=== PATIENT | male | born 1955 | race Caucasian/White ===

== ENCOUNTER 2016-07-11 11:27 | Emergency (ER) | payer BC ==
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
[2016-07-11 14:07] VITALS: BP 118/62
== END 2016-07-11 14:04 | disposition home or self-care (01) ==
LOC: ER 11:27
PROC: 2W3SX1Z Immobilization of Right Foot using Splint (ICD-10-PCS; principal; 2016-07-11)
DX: S93.401A Sprain of unspecified ligament of right ankle, initial encounter (principal); S93.601A Unspecified sprain of right foot, initial encounter; X58.XXXA Exposure to other specified factors, initial encounter
CPT/HCPCS: 99283

== ENCOUNTER 2018-09-08 13:44 | Emergency (ER) | payer BC ==
[2018-09-08 13:56] VITALS: BP 134/65
--- NOTE | 2018-09-08 21:23 | ER Document Report ---
Entered by ISABELA CARABALLO SCRIBE 09/08/18 1433 Acting as scribe for:ARLEEN SU DO ED General - General Chief Complaint: Skin Problem Stated Complaint: LEG PAIN Time Seen by Provider: 09/08/18 14:06 Primary Care Provider: LUNA MOYA PA [Primary Care Provider] - Follow up as needed Notes: Patient is a 62-year-old male presenting to the emergency department complaining of a rash on his bilateral upper extremities and bilateral lower extremities. Patient states he has history of cellulitis and a staph infection and states his current symptoms are similar. He states he went to urgent care 4 days ago and was given Bactroban, 25 mg of hydroxyzine and doxycycline. He states his symptoms initially improved but have worsened yesterday. He states he has been also using OTC steroids and an triple antibiotic ointment with no relief. TRAVEL OUTSIDE OF THE [place] IN LAST 30 DAYS: No - Related Data Allergies/Adverse Reactions: No Known Allergies Allergy (Verified 09/08/18 13:45) Past Medical History - General Information source: Patient - Social History Smoking Status: Former Smoker Cigarette use (# per day): No Chew tobacco use (# tins/day): No Smoking Education Provided: No Frequency of alcohol use: None Family History: Reviewed & Not Pertinent Patient has suicidal ideation: No Patient has homicidal ideation: No Renal/ Medical History: Denies: Hx Peritoneal Dialysis Past Surgical History: Reports: Hx Oral Surgery, Hx Orthopedic Surgery - Immunizations Hx Diphtheria, Pertussis, Tetanus Vaccination: Yes Review of Systems - Review of Systems Constitutional: No symptoms reported EENT: No symptoms reported Cardiovascular: No symptoms reported Respiratory: No symptoms reported Gastrointestinal: No symptoms reported Genitourinary: No symptoms reported Male Genitourinary: No symptoms reported Musculoskeletal: No symptoms reported Skin: See HPI, Rash Hematologic/Lymphatic: No symptoms reported Neurological/Psychological: No symptoms reported -: Yes All other systems reviewed and negative Physical Exam - Vital signs Vitals: Temp Pulse Resp BP Pulse Ox 99 F 73 18 134/65 H 94 09/08/18 13:55 09/08/18 13:55 09/08/18 13:55 09/08/18 13:55 09/08/18 13:55 - Notes Notes: GENERAL: Alert, interacts well. No acute distress. HEAD: Normocephalic, atraumatic. EYES: Pupils equal, round, and reactive to light. Extraocular movements intact. ENT: Oral mucosa moist, tongue midline. NECK: Full range of motion. Supple. Trachea midline. LUNGS: Clear to auscultation bilaterally, no wheezes, rales, or rhonchi. No respiratory distress. HEART: Regular rate and rhythm. No murmurs, gallops, or rubs. ABDOMEN: Soft, non-tender. Non-distended. Bowel sounds present in all 4 quadrants. No guarding, rigidity, or rebound. EXTREMITIES: Moves all 4 extremities spontaneously.. NEUROLOGICAL: Alert and oriented x3. Normal speech. PSYCH: Normal affect, normal mood. SKIN: Warm, dry. Patient is not fully undressed. Diffuse erythematous rash on the bilateral arms and legs, small amount across the abdomen. There are open areas across the arms and legs bilaterally but no blistering. Warm to touch. Negative Nikolsky sign. Course - Re-evaluation Re-evalutation: 09/08/18 14:32 Discussed with patient that his presentation is somewhat atypical. It is very unusual for somebody to have cellulitis in all 4 extremities however it is reassuring that it began to improve with the Bactroban and the doxycycline. Doxycycline covers MRSA and MSSA well but it does not cover strep well. Discussed with patient that I would like to broaden his antibiotic coverage and add Keflex. Also discussed with him that I do not feel he needs IV antibiotics at this time. No evidence of scalded skin syndrome. Discussed that this may also be flaring his eczema and a very short course of low-dose steroids will likely be helpful. Patient will be started on 20 mg a day and tapered by 5 mg a day. Started on Keflex. Discharged to home. Patient will return for fevers of 100.4 or greater, peeling of the skin, increasing redness or any new or concerning problems. - Vital Signs Vital signs: Temp Pulse Resp BP Pulse Ox 99 F 73 18 134/65 H 94 09/08/18 13:55 09/08/18 13:55 09/08/18 13:55 09/08/18 13:55 09/08/18 13:55 Discharge - Discharge Clinical Impression: Bilateral cellulitis of lower leg, Left arm cellulitis Lower extremity cellulitis Qualifiers: Laterality: right Qualified Code(s): L03.115 - Cellulitis of right lower limb Cellulitis of upper extremity Qualifiers: Laterality: right Qualified Code(s): L03.113 - Cellulitis of right upper limb Condition: Stable Disposition: HOME, SELF-CARE Additional Instructions: I think you have combination of worsening eczema and a skin infection called cellulitis. We are adding a second antibiotic to your treatment called Keflex, this cover strep infections. It will work in conjunction with the doxycycline which cover staph infections. I have also added a steroid which will help to decrease your eczema. Please return to the emergency department for a temperature of 100.4 or greater, significant blistering of the skin and peeling of the skin or increasing redness. Prescriptions: Cephalexin Monohydrate [Keflex 500 mg Capsule] 500 mg PO Q6H 7 Days capsule Prednisone [Deltasone 5 mg Tablet] 5 mg PO ASDIR #14 tablet Referrals: LUNA MOYA PA [Primary Care Provider] - Follow up as needed I personally performed the services described in the documentation, reviewed and edited the documentation which was dictated to the scribe in my presence, and it accurately records my words and actions.
== END 2018-09-08 14:54 | disposition home or self-care (01) ==
LOC: ER 13:44
DX: L03.116 Cellulitis of left lower limb (principal); L03.115 Cellulitis of right lower limb; L03.114 Cellulitis of left upper limb; L03.113 Cellulitis of right upper limb; Z87.891 Personal history of nicotine dependence
CPT/HCPCS: 99283

== ENCOUNTER 2020-06-23 15:05 | Inpatient (IN) | payer BC ==
[2020-06-23] MEDS ORDERED: IVERMECTIN 3 MG TABLET PO ONE (16:23)
[2020-06-23] MEDS ORDERED: CHOLECALCIFEROL (D3) 1,000 UNIT (25 MCG) TABLET PO ONE (16:25)
[2020-06-23] MEDS ORDERED: ASCORBIC ACID 500 MG TABLET PO ONE (16:25)
[2020-06-23] MEDS ORDERED: ZINC SULFATE 220 MG CAPSULE PO ONE (16:26)
[2020-06-23] MEDS ORDERED: FAMOTIDINE 20 MG TABLET PO ONE (16:27)
[2020-06-23] MEDS ORDERED: VITAMIN B COMPLEX TABLET PO ONE (16:27)
[2020-06-23 16:48] LABS: ABSOLUTE LYMPHOCYTES (AUTO) 0.4 10^3/uL (0.5-4.7); ABSOLUTE MONOCYTES (AUTO) 0.6 10^3/uL (0.1-1.4); ABSOLUTE NEUT (AUTO) 4.7 10^3/uL (1.7-8.2); BASOPHILS % (AUTO) 0.5 % (0-2); EOSINOPHILS % (AUTO) 0.2 % (0-6); HEMATOCRIT 46.9 % (37.9-51.0); LYMPHOCYTES % (AUTO) 6.7 % (13-45); MEAN CORPUSCULAR HEMOGLOBIN 29.8 pg (27.0-33.4); MEAN CORPUSCULAR HGB CONC 34.2 g/dL (32.0-36.0); MEAN CORPUSCULAR VOLUME 87 fl (80-97); MONOCYTES % (AUTO) 10.4 % (3-13); PLATELET COUNT 265 10^3/uL (150-450); RED BLOOD COUNT 5.37 10^6/uL (4.35-5.55); RED CELL DISTRIBUTION WIDTH 13.5 % (11.5-14.0); SEGMENTED NEUTROPHILS % (AUTO) 82.2 % (42-78); TOTAL CELLS COUNTED % (AUTO) 100 %; WHITE BLOOD COUNT 5.7 10^3/uL (4.0-10.5)
--- NOTE | 2020-06-23 16:52 | RADIOLOGY REPORT (SQ) ---
EXAM DESCRIPTION: CHEST SINGLE VIEW IMAGES COMPLETED DATE/TIME: 06/23/2020 4:39 pm REASON FOR STUDY: low O2 sat/[place] COMPARISON: 06/02/2015 EXAM PARAMETERS: NUMBER OF VIEWS: One view. TECHNIQUE: Single frontal radiographic view of the chest acquired. RADIATION DOSE: NA LIMITATIONS: None. FINDINGS: LUNGS AND PLEURA: Patchy left basilar airspace disease with obscuration of the cardiac [place]. No significant effusion. No pneumothorax. MEDIASTINUM AND HILAR STRUCTURES: No masses. Contour normal. HEART AND VASCULAR STRUCTURES: Heart normal in size. Normal vasculature. BONES: No acute findings. HARDWARE: None in the chest. OTHER: No other significant finding. IMPRESSION: Patchy left basilar airspace disease compatible with pneumonia. TECHNICAL DOCUMENTATION: JOB ID: [id number] 2010 [employer]- All Rights Reserved Reading location - IP/workstation name: [email or web address]
[2020-06-23] MEDS ORDERED: ASPIRIN 81 MG TABLET, CHEWABLE PO ONE (17:02)
--- NOTE | 2020-06-23 17:02 | ER Document Report ---
Entered by ADRIANNA CUBA SCRIBE 06/23/20 1624 Acting as scribe for:FARZANEH HUNT MD ED General - General Chief Complaint: Shortness Of Breath Stated Complaint: TROUBLE BREATHING/BLOODY STOOLS Time Seen by Provider: 06/23/20 16:08 Information source: Patient Notes: This 64 year old male patient that tested POSITIVE for COVID-19 earlier this week presents to the emergency department today with complaints of lack of appetite, non-productive cough, and fevers. He reports that he has been quarantining since last as his tested positive then. He began having symptoms on Friday and he was tested and it was positive. He reports that he had not had a taste/smell until this morning, but mentions that both now seem to be back to normal. He describes his breathing as "erratic" mentioning that he has no energy. TRAVEL OUTSIDE OF THE [place] IN LAST 30 DAYS: No - Related Data Allergies/Adverse Reactions: No Known Allergies Allergy (Verified 09/08/18 13:45) Past Medical History - General Information source: Patient - Social History Smoking Status: Former Smoker - 2000 Cigarette use (# per day): No Chew tobacco use (# tins/day): No Frequency of alcohol use: daily 1.5 beers Drug Abuse: None Occupation: [id number] Lives with: Spouse/Significant other Family History: Reviewed & Not Pertinent Skin Medical History: Reports Hx Eczema Past Surgical History: Reports: Hx Oral Surgery, Hx Orthopedic Surgery - Right ankle, Right knee - Immunizations Hx Diphtheria, Pertussis, Tetanus Vaccination: Yes Review of Systems - Review of Systems Constitutional: See HPI, Other - no appetite, no energy EENT: No symptoms reported Cardiovascular: No symptoms reported Respiratory: See HPI, Cough, Short of breath Gastrointestinal: No symptoms reported Genitourinary: No symptoms reported Male Genitourinary: No symptoms reported Musculoskeletal: No symptoms reported Skin: No symptoms reported Hematologic/Lymphatic: No symptoms reported Neurological/Psychological: No symptoms reported -: Yes All other systems reviewed and negative Physical Exam - Vital signs Vitals: Temp Pulse Resp BP Pulse Ox 101.3 F H 105 H 20 118/84 93 06/23/20 15:31 06/23/20 15:31 06/23/20 15:31 06/23/20 15:31 06/23/20 15:31 - Notes Notes: Physical Exam: General: Alert, appears fatigued. HEENT: Normocephalic. Atraumatic. PERRL. Extraocular movements intact. Oropharynx clear. Neck: Supple. Non-tender. Respiratory: No respiratory distress. Mostly clear breath sounds bilaterally, tachypneic. Cardiovascular: Regular rate and rhythm. Abdominal: Obese. Non-tender. No distension. Normal Bowel Sounds. Back: No gross abnormalities. Extremities: Moves all four extremities. Upper extremities: Normal inspection. Normal ROM. Lower extremities: Normal inspection. No edema. Normal ROM. Neurological: Normal cognition. AAOx4. Normal speech. Psychological: Normal affect. Normal Mood. Skin: Warm. Dry. Normal color. Course - Vital Signs Vital signs: Temp Pulse Resp BP Pulse Ox 100 F 101 H 12 108/78 85 L 06/23/20 18:15 06/23/20 16:25 06/23/20 16:25 06/23/20 16:25 06/23/20 16:25 - Laboratory Results Result Diagrams: 06/23/20 16:00 06/23/20 16:00 Laboratory Results Interpreted: 06/23/20 06/23/20 06/23/20 16:00 16:00 16:00 Lymph % (Auto) 6.7 L Absolute Lymphs (auto) 0.4 L Seg Neutrophils % 82.2 H D-Dimer 2.79 H Carbonic Acid ABG pH ABG pCO2 ABG pO2 ABG HCO3 ABG O2 Saturation Sodium 133.9 L Chloride 95 L Ferritin 624.00 H AST 82 H ALT 61 H Lactate Dehydrogenase Creatine Kinase 1048 H C-Reactive Protein 160.3 H 06/23/20 06/23/20 16:00 16:28 Lymph % (Auto) Absolute Lymphs (auto) Seg Neutrophils % D-Dimer Carbonic Acid 1.03 L ABG pH 7.47 H ABG pCO2 34.1 L ABG pO2 48.4 L ABG HCO3 24.4 H ABG O2 Saturation 87.0 L Sodium Chloride Ferritin AST ALT Lactate Dehydrogenase 445 H Creatine Kinase C-Reactive Protein Critical Laboratory Results Reviewed: Yes Attending or Supervising Physician who Reviewed Labs: FARZANEH HUNT - Hypoxemia - Radiology Results Critical Radiology Results Reviewed: Yes Attending or Supervising Physician who Reviewed Radiology: FARZANEH HUNT - Left lower lobe infiltrate - EKG Interpretation by Me EKG shows normal: Sinus rhythm, [place], Intervals, QRS Complexes, ST-T Waves Rate: Normal - 99 Rhythm: NSR [place]/QRS: Right axis deviation When compared to previous EKG there are: Previous EKG unavailable Critical Care Note - Critical Care Note Total time excluding time spent on procedures (mins): 30 Comments: At least 30 minutes spent evaluating the patient, getting history and physical. Evaluating lab work in the face of known Covid disease. Evaluation of chest x- ray. Reviewing abnormal lab work and entering orders for the medications c urrently recommended for acutely ill Covid pneumonia. Time spent discussing the case with the hospitalist to get him admitted to the hospital. Discharge - Discharge Clinical Impression: Pneumonia due to 2019-nCoV, Hypoxemia Fever Qualifiers: Fever type: unspecified Qualified Code(s): R50.9 - Fever, unspecified Condition: Fair Disposition: ADMITTED INPATIENT Admitting Provider: Esther (Hospitalist) Unit Admitted: [facility] I personally performed the services described in the documentation, reviewed and edited the documentation which was dictated to the scribe in my presence, and it accurately records my words and actions.
[2020-06-23 17:14] LABS: ALBUMIN 4.1 g/dL (3.5-5.0); ALKALINE PHOSPHATASE 69 U/L (38-126); ANION GAP 10 (5-19); ASPARTATE AMINO TRANSFERASE 82 U/L (17-59); BILIRUBIN,DIRECT 0.4 mg/dL (0.0-0.4); BILIRUBIN,TOTAL 1.1 mg/dL (0.2-1.3); BLOOD UREA NITROGEN 13 mg/dL (7-20); CALCIUM 8.7 mg/dL (8.4-10.2); CARBON DIOXIDE 29 mmol/L (22-30); CHLORIDE 95 mmol/L (98-107); CREATINE KINASE 1048 U/L (55-170); GLUCOSE 105 mg/dL (75-110); POTASSIUM 4.2 mmol/L (3.6-5.0); TOTAL PROTEIN 7.4 g/dL (6.3-8.2)
[2020-06-23 17:37] LABS: ARTERIAL BLOOD BASE EXCESS 1.4 mmol/L; ARTERIAL BLOOD H2CO3 1.03 mmol/L (1.05-1.35); ARTERIAL BLOOD HCO3 24.4 mmol/L (20-24); ARTERIAL BLOOD PCO2 34.1 mmHg (35-45); ARTERIAL BLOOD PH 7.47 (7.35-7.45); ARTERIAL BLOOD PO2 48.4 mmHg (80-100); ARTERIAL BLOOD TOTAL CO2 25.5 mmol/L (23-27)
[2020-06-23 17:38] LABS: ARTERIAL BLOOD FIO2 ROOM AIR
[2020-06-23 17:49] LABS: C-REACTIVE PROTEIN 160.3 mg/L (<10.0)
[2020-06-23] MEDS ORDERED: METHYLPREDNISOLONE INJ 125 MG/2 ML SDV IV ONE (18:46)
[2020-06-23] MEDS ORDERED: ENOXAPARIN SODIUM INJ 60 MG/0.6 ML DISP.SYRIN SUBCUT ONE (18:48)
[2020-06-23] MEDS ORDERED: BISACODYL 10 MG SUPP.RECT PR PRN (19:12)
[2020-06-23] MEDS ORDERED: BISACODYL 5 MG TABEC PO PRN (19:12)
[2020-06-23] MEDS: METHYLPREDNISOLONE INJ 40 MG/1 ML SDV IV SCH ×2 (19:22→21:46)
[2020-06-23] MEDS: ASCORBIC ACID 500 MG TABLET PO SCH (19:49)
[2020-06-23] MEDS: CHOLECALCIFEROL (D3) 1,000 UNIT (25 MCG) TABLET PO SCH (19:49)
[2020-06-23] MEDS: ZINC SULFATE 220 MG CAPSULE PO SCH (19:50)
[2020-06-23] MEDS: DOCUSATE SODIUM 100 MG CAPSULE PO SCH (19:57)
[2020-06-23] MEDS: VITAMIN B COMPLEX TABLET PO SCH (20:03)
[2020-06-23] MEDS: DOXYCYCLINE HYCLATE INJ 100 MG VIAL IV SCH (20:04)
[2020-06-23] MEDS: ACETAMINOPHEN 325 MG TABLET PO PRN (20:14)
[2020-06-23] MEDS ORDERED: ONDANSETRON HCL INJ/PF 4 MG/2 ML SDV IV PRN (20:16)
--- NOTE | 2020-06-23 21:10 | PDOC H&P ---
History of Present Illness Admission Date/PCP: 06/23/20 18:55 PRINCESS FERRELL MD Patient complains of: Shortness of breath History of Present Illness: VENITA GONZALES is a 64 year old male who tested positive for COVID-19 4 days back now presents with worsening of shortness of breath and dry cough. Patient states that he has been under quarantine for the past 8 days and initially his symptoms were mild and he was on supportive and symptomatic care at home. But over the past 4 days his cough and shortness of breath has progressively gotten worse and he presented to the ED this afternoon. Arrival his oxygen saturation was 81% on room air and currently is requiring 4 L to saturate around mid 90s. Patient also reports he has associated intermittent low-grade fever, chills, nausea and watery diarrhea. Past Medical History Skin Medical History: Reports: Eczema Past Surgical History Past Surgical History: Reports: Orthopedic Surgery - Right ankle, Right knee Social History Information Source: Patient Lives with: Family, Spouse/Significant other Smoking Status: Former Smoker - 2000 Electronic Cigarette use?: No Frequency of Alcohol Use: Social Hx Recreational Drug Use: No Drugs: None - Advance Directive Resuscitation Status: Full Code Family History Family History: Reviewed & Not Pertinent Parental Family History Reviewed: Yes Children Family History Reviewed: Yes Sibling(s) Family History Reviewed.: Yes Medication/Allergy Home Medications: Ibuprofen [Motrin 600 Mg Tablet] 600 mg PO BID 12/13/11 Loratadine/Pseudoephedrine [Claritin-D 24 Hour Tablet] 1 each PO DAILY 12/13/11 Epinephrine [Epipen 2-Stephan] 0.3 mg IM PRN PRN 06/02/15 Levofloxacin [Levaquin 750 mg Tablet] 750 mg PO DAILY #10 tablet 06/02/15 Ibuprofen [Motrin 600 Mg Tablet] 600 mg PO Q6H PRN #20 tablet 07/11/16 Cephalexin Monohydrate [Keflex 500 mg Capsule] 500 mg PO Q6H 7 Days capsule 09/08/18 Prednisone [Deltasone 5 mg Tablet] 5 mg PO ASDIR #14 tablet 09/08/18 Allergies/Adverse Reactions: No Known Allergies Allergy (Verified 09/08/18 13:45) Review of Systems Constitutional: PRESENT: as per HPI Eyes: ABSENT: visual disturbances Ears: ABSENT: hearing changes Nose, Mouth, and Throat: ABSENT: mouth pain, sore throat Cardiovascular: ABSENT: dyspnea on exertion, edema, orthropnea, palpitations Respiratory: PRESENT: as per HPI Gastrointestinal: PRESENT: as per HPI Genitourinary: ABSENT: dysuria, hematuria Musculoskeletal: ABSENT: joint swelling Integumentary: ABSENT: rash, wounds Neurological: ABSENT: abnormal gait, abnormal speech, confusion, dizziness, focal weakness, syncope Psychiatric: ABSENT: anxiety, depression, homidical ideation, suicidal ideation Endocrine: ABSENT: cold intolerance, heat intolerance, polydipsia, polyuria Hematologic/Lymphatic: ABSENT: easy bleeding, easy bruising Physical Exam Vital Signs: Temp Pulse Resp BP Pulse Ox 100 F 101 H 12 108/78 85 L 06/23/20 18:15 06/23/20 16:25 06/23/20 16:25 06/23/20 16:25 06/23/20 16:25 Intake & Output 06/22/20 06/23/20 06/24/20 06:59 06:59 06:59 Intake Total 250 Balance 250 Weight 110.677 kg Additional comments: GENERAL APPEARANCE: Alert and oriented x3, on 4 L of intranasal oxygen HEENT: Normocephalic and atraumatic. No scleral icterus. Moist oral mucosa NECK: Supple. No lymphadenopathy or tenderness. No JVD CHEST: Symmetric. Nontender to palpation. LUNGS: Clear with good air entry bilaterally. No wheezing or crackles HEART: Regular rate and rhythm with normal S1 and S2. No murmurs, gallops, or rubs. ABDOMEN: Flat, soft, active bowel sounds, no direct or rebound tenderness. No organomegaly detected. EXTREMITIES: No cyanosis, clubbing, or edema. MUSCULOSKELETAL: No deformity, atrophy or swelling noted PSYCHIATRIC: Recent and remote memory is intact. Appropriate mood and affect. SKIN: Warm, dry, and well perfused. No lesions or rashes are noted. NEUROLOGIC: No focal sensory or motor deficits are noted. Results Laboratory Results: 06/23/20 16:00 06/23/20 16:00 06/23/20 06/23/20 06/23/20 16:00 16:00 16:28 WBC 5.7 RBC 5.37 Hgb 16.0 Hct 46.9 MCV 87 MCH 29.8 MCHC 34.2 RDW 13.5 Plt Count 265 Seg Neutrophils % 82.2 H Carbonic Acid 1.03 L HCO3/H2CO3 Ratio 23:1 ABG pH 7.47 H ABG pCO2 34.1 L ABG pO2 48.4 L ABG HCO3 24.4 H ABG O2 Saturation 87.0 L ABG Base Excess 1.4 FiO2 ROOM AIR Sodium 133.9 L Potassium 4.2 Chloride 95 L Carbon Dioxide 29 Anion Gap 10 BUN 13 Creatinine 0.98 Est GFR ( Amer) > 60 Glucose 105 Calcium 8.7 Ferritin 624.00 H Total Bilirubin 1.1 AST 82 H Alkaline Phosphatase 69 C-Reactive Protein 160.3 H Total Protein 7.4 Albumin 4.1 06/23/20 06/23/20 16:00 16:00 Creatine Kinase 1048 H Troponin I < 0.012 Impressions: Chest X-Ray 06/23/20 16:14 IMPRESSION: Patchy left basilar airspace disease compatible with pneumonia. Assessment and Plan - Diagnosis (1) Acute respiratory failure with hypoxia Is this a current diagnosis for this admission?: Yes Plan: Patient confirmed positive for COVID-19 about 4 days back Now presents with worsening shortness of breath Patient was saturating 81% on presentation ABG showed pH/PCO2/PO2 of 7.4 48 Ferritin, dimer, LDH, CK and CRP elevated Chest x-ray shows patchy left basilar airspace opacity Started on steroids, remdesivir, ivermectin and doxycycline Continue zinc, vitamin D, vitamin C Placed on intranasal oxygen Closely monitor respiratory parameters and acute phase reactants protocol (2) Pneumonia due to 2019-nCoV Is this a current diagnosis for this admission?: Yes Plan: Continue plan of care as stated above under hypoxic respiratory failure (3) Fever Qualifiers: Fever type: unspecified Qualified Code(s): R50.9 - Fever, unspecified Is this a current diagnosis for this admission?: Yes Plan: Continue supportive care with Tylenol as needed (4) Obesity (BMI 30.0-34.9) Is this a current diagnosis for this admission?: Yes Plan: Encourage lifestyle modification like dietary change and regular exercise di donta - Time Time Spent with patient: 35 or more minutes Total Critical Time (Minutes): 45 Medications reviewed and adjusted accordingly: Yes Anticipated Discharge Disposition: Home, Self Care Anticipated Discharge Timeframe: within 72 hours - Inpatient Certification Based on my medical assessment, after consideration of the patient's comorbidities, presenting symptoms, or acuity I expect that the services needed warrant INPATIENT care.: Yes I certify that my determination is in accordance with my understanding of Medicare's requirements for reasonable and necessary INPATIENT services [42 CFR 412.3e].: Yes Medical Necessity: Failure to Improve With Outpatient Therapy, Need Close Monitoring Due to Risk of Patient Decompensation, Risk of Complication if Not Cared For in Hospital Post Hospital Care: D/C or Transfer Summary
[2020-06-23] MEDS: MELATONIN 5 MG TABLET PO SCH (21:46)
[2020-06-23] MEDS ORDERED: REMDESIVIR 200 MG in NORMAL SALINE 250 ML IV ONE (22:00)
[2020-06-24 05:29] LABS: ABSOLUTE LYMPHOCYTES (AUTO) 0.3 10^3/uL (0.5-4.7); ABSOLUTE MONOCYTES (AUTO) 0.2 10^3/uL (0.1-1.4); ABSOLUTE NEUT (AUTO) 2.2 10^3/uL (1.7-8.2); BASOPHILS % (AUTO) 0.2 % (0-2); EOSINOPHILS % (AUTO) 0.1 % (0-6); HEMATOCRIT 44.2 % (37.9-51.0); HEMOGLOBIN 15.3 g/dL (13.5-17.0); LYMPHOCYTES % (AUTO) 11.3 % (13-45); MEAN CORPUSCULAR HEMOGLOBIN 29.9 pg (27.0-33.4); MEAN CORPUSCULAR HGB CONC 34.5 g/dL (32.0-36.0); MEAN CORPUSCULAR VOLUME 87 fl (80-97); MONOCYTES % (AUTO) 8.5 % (3-13); PLATELET COUNT 211 10^3/uL (150-450); RED BLOOD COUNT 5.11 10^6/uL (4.35-5.55); RED CELL DISTRIBUTION WIDTH 13.4 % (11.5-14.0); SEGMENTED NEUTROPHILS % (AUTO) 79.9 % (42-78); TOTAL CELLS COUNTED % (AUTO) 100 %
[2020-06-24 05:30] LABS: ANION GAP 8 (5-19); BLOOD UREA NITROGEN 15 mg/dL (7-20); CALCIUM 8.9 mg/dL (8.4-10.2); CARBON DIOXIDE 31 mmol/L (22-30); CHLORIDE 98 mmol/L (98-107); GLUCOSE 188 mg/dL (75-110)
[2020-06-24 05:34] LABS: WHITE BLOOD COUNT 2.8 10^3/uL (4.0-10.5)
[2020-06-24 05:47] LABS: C-REACTIVE PROTEIN 140.4 mg/L (<10.0)
[2020-06-24] MEDS: ASCORBIC ACID 500 MG TABLET PO SCH ×2 (09:29→17:50)
[2020-06-24] MEDS: VITAMIN B COMPLEX TABLET PO SCH (09:29)
[2020-06-24] MEDS: CHOLECALCIFEROL (D3) 1,000 UNIT (25 MCG) TABLET PO SCH (09:29)
[2020-06-24] MEDS: METHYLPREDNISOLONE INJ 40 MG/1 ML SDV IV SCH ×2 (09:29→21:22)
[2020-06-24] MEDS: ZINC SULFATE 220 MG CAPSULE PO SCH (09:30)
[2020-06-24] MEDS: ENOXAPARIN SODIUM INJ 60 MG/0.6 ML DISP.SYRIN SUBCUT SCH (09:31)
[2020-06-24] MEDS: REMDESIVIR 100 MG in NORMAL SALINE 250 ML IV SCH (10:02)
[2020-06-24] MEDS: DOXYCYCLINE HYCLATE 100 MG in DEXTROSE 5%-WATER 250 ML IV SCH (13:03)
[2020-06-24] MEDS: DOXYCYCLINE HYCLATE INJ 100 MG VIAL IV SCH (13:04)
--- NOTE | 2020-06-24 16:47 | PDOC PROGRESS REPORT ---
Subjective Date:: 06/24/20 Subjective:: No adverse events overnight. No new complaints. Vital signs been stable. He s aid he already feels better compared to when he was admitted yesterday. Reason For Visit: PNEUMONIA DUE TO COVID 19 Physical Exam Vital Signs: Temp Pulse Resp BP Pulse Ox 97.6 F 62 19 116/70 94 06/24/20 15:23 06/24/20 15:23 06/24/20 15:23 06/24/20 15:23 06/24/20 15:23 Intake & Output 06/23/20 06/24/20 06/25/20 06:59 06:59 06:59 Intake Total 750 250 Output Total 300 Balance 450 250 Weight 105.8 kg General appearance: PRESENT: no acute distress, cooperative, disheveled, obese Respiratory exam: PRESENT: clear to auscultation kimberly, symmetrical, unlabored. ABSENT: accessory muscle use, chest wall tenderness, crackles, prolonged expiratory phas, rhonchi, tachypnea, wheezes Cardiovascular exam: PRESENT: RRR, +S1, +S2 Pulses: PRESENT: normal carotid pulses Vascular exam: PRESENT: normal capillary refill GI/Abdominal exam: PRESENT: normal bowel sounds, soft. ABSENT: distended, guarding, rebound, tenderness Extremities exam: ABSENT: clubbing, pedal edema Musculoskeletal exam: PRESENT: normal inspection. ABSENT: deformity Neurological exam: PRESENT: alert, awake, oriented to person, oriented to place, oriented to time, oriented to situation Psychiatric exam: PRESENT: appropriate affect, normal mood Skin exam: PRESENT: dry, warm Results Laboratory Results: 06/24/20 04:33 06/24/20 04:33 06/23/20 06/23/20 06/23/20 16:00 16:00 16:28 WBC 5.7 RBC 5.37 Hgb 16.0 Hct 46.9 MCV 87 MCH 29.8 MCHC 34.2 RDW 13.5 Plt Count 265 Seg Neutrophils % 82.2 H Carbonic Acid 1.03 L HCO3/H2CO3 Ratio 23:1 ABG pH 7.47 H ABG pCO2 34.1 L ABG pO2 48.4 L ABG HCO3 24.4 H ABG O2 Saturation 87.0 L ABG Base Excess 1.4 FiO2 ROOM AIR Sodium 133.9 L Potassium 4.2 Chloride 95 L Carbon Dioxide 29 Anion Gap 10 BUN 13 Creatinine 0.98 Est GFR ( Amer) > 60 Glucose 105 Calcium 8.7 Ferritin 624.00 H Total Bilirubin 1.1 AST 82 H Alkaline Phosphatase 69 C-Reactive Protein 160.3 H Total Protein 7.4 Albumin 4.1 06/24/20 06/24/20 04:33 04:33 WBC 2.8 L D RBC 5.11 Hgb 15.3 Hct 44.2 MCV 87 MCH 29.9 MCHC 34.5 RDW 13.4 Plt Count 211 Seg Neutrophils % 79.9 H Carbonic Acid HCO3/H2CO3 Ratio ABG pH ABG pCO2 ABG pO2 ABG HCO3 ABG O2 Saturation ABG Base Excess FiO2 Sodium 137.3 Potassium 4.0 Chloride 98 Carbon Dioxide 31 H Anion Gap 8 BUN 15 Creatinine 0.76 Est GFR ( Amer) > 60 Glucose 188 H Calcium 8.9 Ferritin 697.00 H Total Bilirubin AST Alkaline Phosphatase C-Reactive Protein 140.4 H Total Protein Albumin 06/23/20 06/23/20 16:00 16:00 Creatine Kinase 1048 H Troponin I < 0.012 Impressions: Chest X-Ray 06/23/20 16:14 IMPRESSION: Patchy left basilar airspace disease compatible with pneumonia. Assessment and Plan - Diagnosis (1) Acute respiratory failure with hypoxia Is this a current diagnosis for this admission?: Yes (2) Obesity (BMI 30.0-34.9) Is this a current diagnosis for this admission?: Yes (3) Pneumonia due to 2019-nCoV Is this a current diagnosis for this admission?: Yes - Plan Summary Summary: Continue current treatments including Solu-Medrol and ivermectin. Continue vitamin supplementation. Currently on 2.5 L per oxygen per nasal cannula, down from 4 or 5 L on admission. Will wean oxygen as tolerated. - Time Time Spent with patient: 15-24 minutes Anticipated Discharge Disposition: Home, Self Care Anticipated Discharge Timeframe: Unknown
--- NOTE | 2020-06-24 17:21 | EKG REPORT ---
SEVERITY:- OTHERWISE NORMAL ECG - SINUS RHYTHM BORDERLINE RIGHT AXIS DEVIATION : Confirmed by: Tiffany Lange MD 24-Jun-2020 17:21:17
[2020-06-24] MEDS: MELATONIN 5 MG TABLET PO SCH (21:22)
[2020-06-25] MEDS: ACETAMINOPHEN 325 MG TABLET PO PRN (05:20)
[2020-06-25 06:17] LABS: HEMATOCRIT 44.9 % (37.9-51.0); HEMOGLOBIN 15.5 g/dL (13.5-17.0); MEAN CORPUSCULAR HGB CONC 34.5 g/dL (32.0-36.0); MEAN CORPUSCULAR VOLUME 87 fl (80-97); PLATELET COUNT 277 10^3/uL (150-450); RED BLOOD COUNT 5.17 10^6/uL (4.35-5.55); RED CELL DISTRIBUTION WIDTH 13.5 % (11.5-14.0)
[2020-06-25 06:33] LABS: ANION GAP 7 (5-19); BLOOD UREA NITROGEN 17 mg/dL (7-20); CALCIUM 9.1 mg/dL (8.4-10.2); CARBON DIOXIDE 27 mmol/L (22-30); CHLORIDE 102 mmol/L (98-107); GLUCOSE 153 mg/dL (75-110); POTASSIUM 4.8 mmol/L (3.6-5.0)
[2020-06-25 06:37] LABS: WHITE BLOOD COUNT 12.3 10^3/uL (4.0-10.5)
[2020-06-25 07:21] LABS: ABSOLUTE LYMPHOCYTES# (MANUAL) 0.5 10^3/uL (0.5-4.7); ABSOLUTE MONOCYTES # (MANUAL) 0.6 10^3/uL (0.1-1.4); BASOPHILS % (MANUAL) 0 % (0-2); EOSINOPHILS % (MANUAL) 0 % (0-6); LYMPHOCYTES % (MANUAL) 3 % (13-45); MONOCYTES % (MANUAL) 5 % (3-13); PLATELET COMMENT ADEQUATE; RBC MORPHOLOGY COMMENT NORMO-CYTIC/CHROMIC; SEGMENTED NEUTROPHILS % (MAN) 91 % (42-78); TOTAL CELLS COUNTED 100
[2020-06-25] MEDS: IVERMECTIN 3 MG TABLET PO SCH (09:00)
[2020-06-25] MEDS: ZINC SULFATE 220 MG CAPSULE PO SCH (09:00)
[2020-06-25] MEDS: CHOLECALCIFEROL (D3) 1,000 UNIT (25 MCG) TABLET PO SCH (09:00)
[2020-06-25] MEDS: ENOXAPARIN SODIUM INJ 60 MG/0.6 ML DISP.SYRIN SUBCUT SCH (09:01)
[2020-06-25] MEDS: METHYLPREDNISOLONE INJ 40 MG/1 ML SDV IV SCH ×2 (09:01→21:47)
[2020-06-25] MEDS: ASCORBIC ACID 500 MG TABLET PO SCH ×2 (09:01→17:50)
[2020-06-25] MEDS: VITAMIN B COMPLEX TABLET PO SCH (09:01)
[2020-06-25] MEDS ORDERED: IVERMECTIN 3 MG TABLET PO SCH (10:00)
[2020-06-25] MEDS: DOXYCYCLINE HYCLATE 100 MG in DEXTROSE 5%-WATER 250 ML IV SCH (10:11)
[2020-06-25] MEDS: REMDESIVIR 100 MG in NORMAL SALINE 250 ML IV SCH (11:11)
[2020-06-25] MEDS ORDERED: DOXYCYCLINE HYCLATE 100 MG in DEXTROSE 5%-WATER 250 ML IV SCH (12:30)
--- NOTE | 2020-06-25 14:56 | PDOC PROGRESS REPORT ---
Subjective Date:: 06/25/20 Subjective:: No adverse events overnight. No new complaints. SPO2 on 2 L while standing up and talking was 99%, so we turned him down to 1 L. He has been able to perform his ADLs without difficulty. Minimal cough. Reason For Visit: PNEUMONIA DUE TO COVID 19 Physical Exam Vital Signs: Temp Pulse Resp BP Pulse Ox 98.2 F 89 19 123/65 99 06/25/20 11:00 06/25/20 11:00 06/25/20 11:00 06/25/20 11:00 06/25/20 11:00 Intake & Output 06/24/20 06/25/20 06/26/20 06:59 06:59 06:59 Intake Total 750 1490 770 Output Total 300 1250 Balance 450 240 770 Weight 105.8 kg 105 kg General appearance: PRESENT: no acute distress, cooperative, disheveled, obese Respiratory exam: PRESENT: clear to auscultation kimberly, symmetrical, unlabored. ABSENT: accessory muscle use, chest wall tenderness, crackles, prolonged expirat ory phas, rhonchi, tachypnea, wheezes Cardiovascular exam: PRESENT: RRR, +S1, +S2 Pulses: PRESENT: normal carotid pulses Vascular exam: PRESENT: normal capillary refill GI/Abdominal exam: PRESENT: normal bowel sounds, soft. ABSENT: distended, guarding, rebound, tenderness Extremities exam: ABSENT: clubbing, pedal edema Musculoskeletal exam: PRESENT: normal inspection. ABSENT: deformity Neurological exam: PRESENT: alert, awake, oriented to person, oriented to place, oriented to time, oriented to situation Psychiatric exam: PRESENT: appropriate affect, normal mood Skin exam: PRESENT: dry, warm Results Laboratory Results: 06/25/20 04:59 06/25/20 04:59 06/25/20 06/25/20 04:59 04:59 WBC 12.3 H D RBC 5.17 Hgb 15.5 Hct 44.9 MCV 87 MCH 30.0 MCHC 34.5 RDW 13.5 Plt Count 277 Seg Neutrophils % Not Reportable Sodium 136.4 L Potassium 4.8 Chloride 102 Carbon Dioxide 27 Anion Gap 7 BUN 17 Creatinine 0.66 Est GFR ( Amer) > 60 Glucose 153 H Calcium 9.1 06/23/20 06/23/20 16:00 16:00 Creatine Kinase 1048 H Troponin I < 0.012 Impressions: Chest X-Ray 06/23/20 16:14 IMPRESSION: Patchy left basilar airspace disease compatible with pneumonia. Assessment and Plan - Diagnosis (1) Acute respiratory failure with hypoxia Is this a current diagnosis for this admission?: Yes (2) Obesity (BMI 30.0-34.9) Is this a current diagnosis for this admission?: Yes (3) Pneumonia due to 2019-nCoV Is this a current diagnosis for this admission?: Yes - Plan Summary Summary: Continue current treatments including Solu-Medrol and ivermectin. Continue vitamin supplementation. Currently on 1 L per oxygen per nasal cannula, down from 4 or 5 L on admission. Will wean oxygen as tolerated. - Time Time Spent with patient: 15-24 minutes Anticipated Discharge Disposition: Home, Self Care Anticipated Discharge Timeframe: within 48 hours
[2020-06-25] MEDS: MELATONIN 5 MG TABLET PO SCH (21:47)
[2020-06-25] MEDS: DOCUSATE SODIUM 100 MG CAPSULE PO SCH (21:47)
[2020-06-26 05:35] LABS: HEMATOCRIT 44.4 % (37.9-51.0); MEAN CORPUSCULAR HEMOGLOBIN 29.5 pg (27.0-33.4); MEAN CORPUSCULAR HGB CONC 33.9 g/dL (32.0-36.0); MEAN CORPUSCULAR VOLUME 87 fl (80-97); PLATELET COUNT 294 10^3/uL (150-450); RED BLOOD COUNT 5.11 10^6/uL (4.35-5.55); RED CELL DISTRIBUTION WIDTH 13.3 % (11.5-14.0); WHITE BLOOD COUNT 13.7 10^3/uL (4.0-10.5)
[2020-06-26 05:58] LABS: ANION GAP 7 (5-19); BLOOD UREA NITROGEN 17 mg/dL (7-20); C-REACTIVE PROTEIN 31.7 mg/L (<10.0); CALCIUM 8.9 mg/dL (8.4-10.2); CARBON DIOXIDE 29 mmol/L (22-30); CHLORIDE 103 mmol/L (98-107); GLUCOSE 135 mg/dL (75-110); POTASSIUM 4.9 mmol/L (3.6-5.0)
[2020-06-26 07:01] LABS: ABSOLUTE LYMPHOCYTES# (MANUAL) 0.4 10^3/uL (0.5-4.7); ABSOLUTE MONOCYTES # (MANUAL) 0.8 10^3/uL (0.1-1.4); BASOPHILS % (MANUAL) 0 % (0-2); EOSINOPHILS % (MANUAL) 0 % (0-6); LYMPHOCYTES % (MANUAL) 3 % (13-45); MONOCYTES % (MANUAL) 6 % (3-13); SEGMENTED NEUTROPHILS % (MAN) 91 % (42-78); TOTAL CELLS COUNTED 100
[2020-06-26 07:02] LABS: PLATELET CLUMPS PRESENT; PLATELET COMMENT ADEQUATE; RBC MORPHOLOGY COMMENT NORMO-CYTIC/CHROMIC
[2020-06-26] MEDS: ENOXAPARIN SODIUM INJ 60 MG/0.6 ML DISP.SYRIN SUBCUT SCH (09:15)
[2020-06-26] MEDS: ZINC SULFATE 220 MG CAPSULE PO SCH (09:16)
[2020-06-26] MEDS: IVERMECTIN 3 MG TABLET PO SCH (09:16)
[2020-06-26] MEDS: METHYLPREDNISOLONE INJ 40 MG/1 ML SDV IV SCH (09:16)
[2020-06-26] MEDS: ASCORBIC ACID 500 MG TABLET PO SCH (09:16)
[2020-06-26] MEDS: CHOLECALCIFEROL (D3) 1,000 UNIT (25 MCG) TABLET PO SCH (09:16)
[2020-06-26] MEDS: VITAMIN B COMPLEX TABLET PO SCH (09:16)
[2020-06-26] MEDS: DOXYCYCLINE HYCLATE 100 MG in DEXTROSE 5%-WATER 250 ML IV SCH (10:58)
[2020-06-26 15:08] VITALS: BP 123/65
--- NOTE | 2020-06-26 15:12 | PDOC DISCHARGE SUMMARY ---
Impression - Admit/DC Date/PCP Admission Date/Primary Care Provider: 06/23/20 18:55 PRINCESS FERRELL MD Discharge Date: 06/26/20 - Discharge Diagnosis (1) Acute respiratory failure with hypoxia Is this a current diagnosis for this admission?: Yes (2) Obesity (BMI 30.0-34.9) Is this a current diagnosis for this admission?: Yes (3) Pneumonia due to 2019-nCoV Is this a current diagnosis for this admission?: Yes - Assessment Summary: Continue current treatments including Solu-Medrol and ivermectin. Continue vitamin supplementation. Currently on 1 L per oxygen per nasal cannula, down from 4 or 5 L on admission. Will wean oxygen as tolerated. - Additional Information Resuscitation Status: Full Code Discharge Diet: Regular Discharge Activity: Activity As Tolerated, Balance Activity w/Rest Referrals: [facility] [Provider Group] Prescriptions: Prednisone 10 mg PO ASDIR #48 tab.ds.pk Home Medications: Clobetasol Propionate [Temovate 0.05% Ointment 15 gm] 1 applic TOP DAILY 06/24/20 Ascorbic Acid [Vitamin C 500 mg Tablet] 1,000 mg PO BID #0 tablet 06/26/20 Cholecalciferol (Vitamin D3) [Vitamin D3 1000 Unit Tablet] 2,000 unit PO DAILY tablet 06/26/20 Melatonin [Melatonin 5 mg Tablet] 10 mg PO QHS tablet 06/26/20 Prednisone 10 mg PO ASDIR #48 tab.ds.pk 06/26/20 Vitamin B Complex [Vitamin B Complex Tablet] 1 tab PO DAILY tablet 06/26/20 Zinc Sulfate [Zinc-220 Capsule] 220 mg PO DAILY capsule 06/26/20 History of Present Illiness History of Present Illness: VENITA GONZALES is a 64 year old male who tested positive for COVID-19 4 days back now presents with worsening of shortness of breath and dry cough. Patient states that he has been under quarantine for the past 8 days and initially his symptoms were mild and he was on supportive and symptomatic care at home. But over the past 4 days his cough and shortness of breath has progressively gotten worse and he presented to the ED this afternoon. Arrival his oxygen saturation was 81% on room air and currently is requiring 4 L to saturate around mid 90s. Patient also reports he has associated intermittent low-grade fever, chills, nausea and watery diarrhea. Hospital Course Hospital Course: He had an excellent response to the MATH+ protocol. His oxygen was weaned and he is down to room air and comfortable. He will continue a prednisone taper at home. He will continue vitamin supplementation as well. I told him that he dre uld probably take the rest of this week off from work. He is going to follow-up with his primary care provider early next week to determine if he is able to return to work at that time. His labs and examination were reassuring and he was discharged in stable condition. Physical Exam Vital Signs: Temp Pulse Resp BP Pulse Ox 97.7 F 64 20 125/84 94 06/26/20 11:39 06/26/20 11:39 06/26/20 13:15 06/26/20 11:39 06/26/20 13:15 Intake & Output 06/25/20 06/26/20 06/27/20 06:59 06:59 06:59 Intake Total 1490 1450 690 Output Total 1250 0 Balance 240 1450 690 Weight 105 kg General appearance: PRESENT: no acute distress, cooperative, disheveled, obese Respiratory exam: PRESENT: clear to auscultation kimberly, symmetrical, unlabored. ABSENT: accessory muscle use, chest wall tenderness, crackles, prolonged expiratory phas, rhonchi, tachypnea, wheezes Cardiovascular exam: PRESENT: RRR, +S1, +S2 Pulses: PRESENT: normal carotid pulses Vascular exam: PRESENT: normal capillary refill GI/Abdominal exam: PRESENT: normal bowel sounds, soft. ABSENT: distended, guarding, rebound, tenderness Extremities exam: ABSENT: clubbing, pedal edema Musculoskeletal exam: PRESENT: normal inspection. ABSENT: deformity Neurological exam: PRESENT: alert, awake, oriented to person, oriented to place, oriented to time, oriented to situation Psychiatric exam: PRESENT: appropriate affect, normal mood Skin exam: PRESENT: dry, warm Results Laboratory Results: WBC 13.7 10^3/uL (4.0-10.5) H 06/26/20 04:24 RBC 5.11 10^6/uL (4.35-5.55) 06/26/20 04:24 Hgb 15.0 g/dL (13.5-17.0) 06/26/20 04:24 Hct 44.4 % (37.9-51.0) 06/26/20 04:24 MCV 87 fl (80-97) 06/26/20 04:24 MCH 29.5 pg (27.0-33.4) 06/26/20 04:24 MCHC 33.9 g/dL (32.0-36.0) 06/26/20 04:24 RDW 13.3 % (11.5-14.0) 06/26/20 04:24 Plt Count 294 10^3/uL (150-450) 06/26/20 04:24 Lymph % (Auto) Not Reportable 06/26/20 04:24 Ralls % (Auto) Not Reportable 06/26/20 04:24 Eos % (Auto) Not Reportable 06/26/20 04:24 Baso % (Auto) Not Reportable 06/26/20 04:24 Absolute Neuts (auto) Not Reportable 06/26/20 04:24 Absolute Lymphs (auto) Not Reportable 06/26/20 04:24 Absolute Monos (auto) Not Reportable 06/26/20 04:24 Absolute Eos (auto) Not Reportable 06/26/20 04:24 Absolute Basos (auto) Not Reportable 06/26/20 04:24 Total Counted 100 06/26/20 04:24 Seg Neutrophils % Not Reportable 06/26/20 04:24 Seg Neuts % (Manual) 91 % (42-78) H 06/26/20 04:24 Lymphocytes % (Manual) 3 % (13-45) L 06/26/20 04:24 Atypical Lymphs % 1 % (0) 06/25/20 04:59 Monocytes % (Manual) 6 % (3-13) 06/26/20 04:24 Eosinophils % (Manual) 0 % (0-6) 06/26/20 04:24 Basophils % (Manual) 0 % (0-2) 06/26/20 04:24 Abs Neuts (Manual) 12.5 10^3/uL (1.7-8.2) H 06/26/20 04:24 Abs Lymphs (Manual) 0.4 10^3/uL (0.5-4.7) L 06/26/20 04:24 Abs Monocytes (Manual) 0.8 10^3/uL (0.1-1.4) 06/26/20 04:24 Absolute Eos (Manual) 0.0 10^3/uL (0.0-0.6) 06/26/20 04:24 Abs Basophils (Manual) 0.0 10^3/uL (0.0-0.2) 06/26/20 04:24 Clumped Platelets PRESENT 06/26/20 04:24 Platelet Comment ADEQUATE 06/26/20 04:24 RBC Morph Comment NORMO-CYTIC/CHROMIC 06/26/20 04:24 D-Dimer 0.82 ug/mL (0.00-0.50) H 06/26/20 04:24 Carbonic Acid 1.03 mmol/L (1.05-1.35) L 06/23/20 16:28 HCO3/H2CO3 Ratio 23:1 06/23/20 16:28 ABG pH 7.47 (7.35-7.45) H 06/23/20 16:28 ABG pCO2 34.1 mmHg (35-45) L 06/23/20 16:28 ABG pO2 48.4 mmHg (80-100) L 06/23/20 16:28 ABG HCO3 24.4 mmol/L (20-24) H 06/23/20 16:28 ABG Total CO2 25.5 mmol/L (23-27) 06/23/20 16:28 ABG O2 Saturation 87.0 % (94-98) L 06/23/20 16:28 ABG Base Excess 1.4 mmol/L 06/23/20 16:28 FiO2 ROOM AIR 06/23/20 16:28 Sodium 138.8 mmol/L (137-145) 06/26/20 04:24 Potassium 4.9 mmol/L (3.6-5.0) 06/26/20 04:24 Chloride 103 mmol/L (98-107) 06/26/20 04:24 Carbon Dioxide 29 mmol/L (22-30) 06/26/20 04:24 Anion Gap 7 (5-19) 06/26/20 04:24 BUN 17 mg/dL (7-20) 06/26/20 04:24 Creatinine 0.71 mg/dL (0.52-1.25) 06/26/20 04:24 Est GFR ( Amer) > 60 (>60) 06/26/20 04:24 Est GFR (MDRD) Non-Af > 60 (>60) 06/26/20 04:24 Glucose 135 mg/dL (75-110) H 06/26/20 04:24 Calcium 8.9 mg/dL (8.4-10.2) 06/26/20 04:24 Ferritin 760.00 ng/mL (17.9-464.0) H 06/26/20 04:24 Total Bilirubin 1.1 mg/dL (0.2-1.3) 06/23/20 16:00 Direct Bilirubin 0.4 mg/dL (0.0-0.4) 06/23/20 16:00 Neonat Total Bilirubin Not Reportable 06/23/20 16:00 Neonat Direct Bilirubin Not Reportable 06/23/20 16:00 Neonat Indirect Bili Not Reportable 06/23/20 16:00 AST 82 U/L (17-59) H 06/23/20 16:00 ALT 61 U/L (<50) H 06/23/20 16:00 Alkaline Phosphatase 69 U/L (38-126) 06/23/20 16:00 Lactate Dehydrogenase 445 U/L (120-246) H 06/23/20 16:00 Creatine Kinase 1048 U/L (55-170) H 06/23/20 16:00 Troponin I < 0.012 ng/mL 06/23/20 16:00 C-Reactive Protein 31.7 mg/L (<10.0) H 06/26/20 04:24 Total Protein 7.4 g/dL (6.3-8.2) 06/23/20 16:00 Albumin 4.1 g/dL (3.5-5.0) 06/23/20 16:00 06/23/20 16:00 Troponin I < 0.012 Impressions: Chest X-Ray 06/23/20 16:14 IMPRESSION: Patchy left basilar airspace disease compatible with pneumonia. Plan Time Spent: Greater than 30 Minutes Stroke Is this a Stroke Patient?: No Acute Heart Failure Is this a Heart Failure Patient?: No
== END 2020-06-26 15:56 | disposition home or self-care (01) | DRG 177 ==
LOC: ER 15:05 → EH 18:55 → OBSVTOIN 18:55 → INTOOBSV 18:55 → 3W 06-24 00:27
PROVIDERS: ADMIT Student in an Organized Health Care Education/Training Program; ATTEND Family Medicine
PROC: XW033E5 Introduction of Remdesivir Anti-infective into Peripheral Vein, Percutaneous Approach, New Technology Group 5 (ICD-10-PCS; principal; 2020-06-23)
DX: U07.1 COVID-19 (principal); J12.89 Other viral pneumonia; J96.01 Acute respiratory failure with hypoxia; E66.9 Obesity, unspecified; Z68.30 Body mass index [BMI] 30.0-30.9, adult; Z87.891 Personal history of nicotine dependence; Z79.1 Long term (current) use of non-steroidal anti-inflammatories (NSAID); Z79.899 Other long term (current) drug therapy
CPT/HCPCS: 36415; 71045; 80048; 80053; 82550; 82728; 82803; 83615; 84484; 85025; 85379; 86140; 93005; 93010; 99285; J1650; J2920; J2930; J3490; J7050; J7060